=== PATIENT | male | born 1975 | race Hispanic/Latino ===

== ENCOUNTER 2016-07-27 11:24 | Emergency (ER) ==
[2016-07-27 11:48] LABS: MANUAL DIFF NEEDED? NO
[2016-07-27 12:05] LABS: EOS# 0.03 X1000 (0.0-0.7); EOS% 0.7 % (0.0-10.0); HEMATOCRIT 42.2 % (42.0-52.0); HEMOGLOBIN 14.6 g/dL (14.0-18.0); LYMPH# 1.88 X1000 (1.2-3.4); LYMPH% 44.8 % (20.5-51.1); MCH 34.8 PG (27-31); MCHC 34.6 g/dL (33-37); MCV 100.5 FL (81-99); MONO# 0.43 X1000 (0.11-0.59); MONO% 10.2 % (1.7-9.3); MPV 9.4 FL (7.4-10.4); NEUT% 44.3 % (42.2-75.2); PLT 202 X1000 (130-400)
[2016-07-27 12:11] LABS: AGAP 11; ALBUMIN 3.9 g/dL (3.5-5.0); ALKALINE PHOSPHATASE 120 U/L (32-122); BUN 14 mg/dL (8-22); CALCIUM 8.2 mg/dL (8.8-10.2); CHLORIDE 102 mmol/L (98-107); CK PROFILE 122 U/L (24-204); COSMO 274; GOT 23 U/L (10-34); GPT 34 U/L (10-44); MAGNESIUM 2.1 mg/dL (1.5-2.7); POTASSIUM 4.1 mmol/L (3.5-5.1); SODIUM 137 mmol/L (136-145); TCO2 24 mmol/L (25-35); TOTAL BILIRUBIN 0.19 mg/dL (0.20-1.00)
[2016-07-27 12:15] LABS: INR 0.94; PTT 25.3 Seconds (22.0-36.0)
[2016-07-27] MEDS ORDERED: NITROGLYCERIN TOP ONE (13:26)
[2016-07-27] MEDS ORDERED: ASPIRIN PO ONE (13:26)
[2016-07-27] MEDS ORDERED: ZOFRAN IV ONE (13:26)
[2016-07-27] MEDS ORDERED: MORPHINE IV ONE (13:26)
[2016-07-27] MEDS ORDERED: XANAX PO ONE (13:26)
--- NOTE | 2016-07-27 13:33 | PROVIDER DOCUMENTATION ---
HPI-Chest Pain - General Chief Complaint: Chest Pain Stated Complaint: CP Time Seen by Provider: 07/27/16 13:00 Source: patient Allergies/Adverse Reactions: Patient Allergies Allergy/AdvReac Type Severity Reaction Status Date / Time No Known Allergies Allergy Verified 07/27/16 12:05 Home Medications: Home Medication List Medication Instructions Recorded Confirmed Last Taken Type Clonazepam 1 mg PO BID 12/31/14 07/27/16 07/24/16 20:00 History Phenytoin [Dilantin] 300 mg PO BID 04/14/15 07/27/16 07/27/16 07:30 History Metoprolol Succinate E.r. [Toprol 100 mg PO DAILY 12/31/15 07/27/16 07/27/16 07: 30 History Xl] Aspirin [Aspirin EC] 81 mg PO DAILY #90 tablet. 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 Pt describes the chest pain as aching in nature, midsternal and L chest, radiation down L arm, intermittent, made worse by deep inspiration. He states his chest pain started at work last night while he was lifting heavy objects. Pt woke with the chest pain this morning. Pt has a h/o chronic pain from recurrent renal stones, htn, anxiety. He denies any h/o RI or family h/o RI <55 years of age. On arrival, pt is in minimal distress. Review of Systems - Adult - REVIEW OF SYSTEMS - ADULT Constitutional: reports: no symptoms reported. denies: chills, fatique Eyes: reports: no symptoms reported. denies: blurred vision, double vision Ears, Nose, Mouth & Throat: reports: no symptoms reported. denies: ear pain, nose pain, throat pain Cardiovascular: reports: chest pain. denies: orthopnea Respiratory: reports: pleurisy. denies: chronic cough, cough, shortness of breath Gastrointestinal: reports: no symptoms reported. denies: abdominal pain, nausea Genitourinary: reports: no symptoms reported. denies: dysuria, hematuria Musculoskeletal: reports: muscle aches. denies: joint pain, joint swelling Integumentary: reports: no symptoms reported. denies: hives, itching Neurological: reports: no symptoms reported. denies: numbness, paresthesia Psychiatric: reports: no symptoms reported. denies: anxiety, emotional problems Endocrine: reports: no symptoms reported. denies: cold intolerance, heat intolerance Hematologic/Lymphatic: reports: no symptoms reported. denies: blood clots, low blood count Allergic/Immunologic: reports: no symptoms reported. denies: allergic reactions , eczema All Other Systems: Reviewed and Negative Past History - Adult - PAST MEDICAL HISTORY-ADULT Review of Records: reports: Old Records Reviewed, Nursing Assessment Review, Medications Reviewed, Social history reviewed & non-contributory. Major Childhood Illnesses: reports: denies history Cardiovascular: reports: HTN Respiratory: reports: denies history Gastrointestinal: reports: denies history Obstetrical/Gynecological: reports: denies history Genitourinary: reports: kidney stones Musculoskeletal: reports: denies history Neurological: reports: Seizures/Epilepsy Psychiatric: reports: anxiety Endocrine/Immune: reports: denies history Other Conditions: reports: denies history - PRIOR SURGERIES/PROCEDURES Surgical/Procedure History: reports: other (lithotripsy) - PRIOR HOSPITALIZATIONS Prior Hospitalizations: reports: none - IMMUNIZATION STATUS Childhood Immunizations: See Nurse Assessment Flu Vaccine: See Nurse Assessment - FAMILY HISTORY Family History: reviewed, not pertinent - SOCIAL HISTORY Smoking: denies Substance Use: none/never Alcohol Use Frequency: never Physical Exam-General - PHYSICAL EXAM-ADULT Initial Vital Signs Reviewed: Yes - CONSTITUTIONAL General Appearance: appears well, alert, no apparent distress - EYES Eyes: PERRL/EOMI, pink conjunctivae - HEAD, EARS, NOSE, MOUTH & THROAT HENMT: normocephalic/atraumatic, moist mucous membranes, normal ENT inspection - RESPIRATORY Respiratory: lungs clear, normal breath sounds, pain on inspiration, other ( tenderness to palpation of lower sternum, 5th and 6th rib) - CARDIOVASCULAR Cardiovascular: normal peripheral pulses, regular rate, rhythm, no edema - GASTROINTESTINAL (ABDOMEN) Abdominal Exam: normal bowel sounds, non tender, soft - LYMPHATIC Lymphatic: no adenopathy - MUSCULOSKELETAL Back Exam: normal inspection, no CVA tenderness Extremity: normal range of motion, non-tender, normal gait - SKIN Integumentary: normal color, normal turgor, warm/dry - NEUROLOGIC Neurologic: grossly normal, no motor/sensory deficits - PSYCHIATRIC Psych/Mental Status: normal mood/affect, normal thought content, normal thought process, oriented x 3 Progress - PLAN OF CARE/RESULTS Progress/Plan/Lab Results: Orders Category Date Time Status CHEST-2 VIEWS [RAD] Stat Exams 07/27/16 11:42 Completed CBC WITH ELECTRONIC DIFF [HEME] Stat Lab 07/27/16 11:35 Completed CK PROFILE [SP CHEM] Stat Lab 07/27/16 11:35 Completed CK PROFILE [SP CHEM] Stat Lab 07/27/16 13:56 Completed COMPREHENSIVE METABOLIC PANEL [CHEM] Stat Lab 07/27/16 11:35 Completed D-DIMER [CHEM] Stat Lab 07/27/16 11:35 Completed MAGNESIUM [CHEM] Stat Lab 07/27/16 11:35 Completed PRO B-NATRIURETIC PEPTIDE Stat Lab 07/27/16 11:35 Completed PROTIME WITH INR [COAG] Stat Lab 07/27/16 11:35 Completed PTT [COAG] Stat Lab 07/27/16 11:35 Completed TROPONIN T Stat Lab 07/27/16 11:35 Completed TROPONIN T Stat Lab 07/27/16 13:56 Completed Alprazolam [Xanax] Med 07/27/16 13:26 Discontinued 0.5 mg PO NOW ONE Aspirin Med 07/27/16 13:26 Discontinued 325 mg PO NOW ONE CefTRIAXONE 1 GM/NS [Rocephin 1 gm/Ns] 50 ml Med 07/27/16 14:51 Discontinued IV NOW Dexamethasone [Decadron] Med 07/27/16 14:51 Discontinued 10 mg IV NOW ONE Morphine Med 07/27/16 13:26 Discontinued 2 mg IV NOW ONE Nitroglycerin Med 07/27/16 13:26 Discontinued 0.5 inch TOP NOW ONE Ondansetron [Zofran] Med 07/27/16 13:26 Discontinued 4 mg IV NOW ONE EKG [EKG] Stat Ther 07/27/16 11:42 Ordered EKG [EKG] Stat Ther 07/27/16 13:26 Ordered Laboratory Tests 07/27/16 07/27/16 07/27/16 11:35 11:35 11:35 WBC 4.20 L RBC 4.20 L Hgb 14.6 Hct 42.2 MCV 100.5 H MCH 34.8 H MCHC 34.6 RDW Std Deviation 13.2 Plt Count 202 MPV 9.4 Immature Gran % (Auto) 0.0 Neut % (Auto) 44.3 Lymph % (Auto) 44.8 [place] % (Auto) 10.2 H Eos % (Auto) 0.7 Baso % (Auto) 0.0 Immature Gran # (Auto) 0.00 Neut # (Auto) 1.86 Lymph # (Auto) 1.88 [place] # (Auto) 0.43 Eos # (Auto) 0.03 Baso # (Auto) 0.00 PT INR PTT (Actin FS) D-Dimer 0.43 Sodium 137 Potassium 4.1 Chloride 102 Carbon Dioxide 24 L Anion Gap 11 BUN 14 Creatinine 0.8 Estimated GFR/1.73 m2 > 60 BUN/Creatinine Ratio 18 Glucose 99 Calculated Osmolality 274 Calcium 8.2 L Magnesium 2.1 Total Bilirubin 0.19 L AST 23 ALT 34 Alkaline Phosphatase 120 Creatine Kinase 122 Troponin T Sdh-H-Yacyeunrkgo Pept Total Protein 7.0 Albumin 3.9 Globulin 3.1 Albumin/Globulin Ratio 1.3 07/27/16 07/27/16 07/27/16 11:35 11:35 11:35 WBC RBC Hgb Hct MCV MCH MCHC RDW Std Deviation Plt Count MPV Immature Gran % (Auto) Neut % (Auto) Lymph % (Auto) [place] % (Auto) Eos % (Auto) Baso % (Auto) Immature Gran # (Auto) Neut # (Auto) Lymph # (Auto) [place] # (Auto) Eos # (Auto) Baso # (Auto) PT 10.0 INR 0.94 PTT (Actin FS) 25.3 D-Dimer Sodium Potassium Chloride Carbon Dioxide Anion Gap BUN Creatinine Estimated GFR/1.73 m2 BUN/Creatinine Ratio Glucose Calculated Osmolality Calcium Magnesium Total Bilirubin AST ALT Alkaline Phosphatase Creatine Kinase Troponin T < 0.010 Mzq-J-Nuytgechajf Pept 129 H Total Protein Albumin Globulin Albumin/Globulin Ratio 07/27/16 07/27/16 13:56 13:56 WBC RBC Hgb Hct MCV MCH MCHC RDW Std Deviation Plt Count MPV Immature Gran % (Auto) Neut % (Auto) Lymph % (Auto) [place] % (Auto) Eos % (Auto) Baso % (Auto) Immature Gran # (Auto) Neut # (Auto) Lymph # (Auto) [place] # (Auto) Eos # (Auto) Baso # (Auto) PT INR PTT (Actin FS) D-Dimer Sodium Potassium Chloride Carbon Dioxide Anion Gap BUN Creatinine Estimated GFR/1.73 m2 BUN/Creatinine Ratio Glucose Calculated Osmolality Calcium Magnesium Total Bilirubin AST ALT Alkaline Phosphatase Creatine Kinase 109 Troponin T < 0.010 Vyf-N-Bjgwrtkdlam Pept Total Protein Albumin Globulin Albumin/Globulin Ratio Vital Signs - 24 hr 07/27/16 07/27/16 07/27/16 11:38 13:05 14:18 Temperature 98.4 F Pulse Rate 64 62 67 Respiratory 20 19 16 Rate Blood Pressure 171/91 153/92 153/92 O2 Sat by Pulse 100 100 Oximetry 07/27/16 16:02 Temperature Pulse Rate 63 Respiratory 14 Rate Blood Pressure 130/91 O2 Sat by Pulse 99 Oximetry - REASSESSMENT Reassessment #1 Time Reassessed: 14:53 (Discussed c Dr. Vega (ER MD) who reviewed labs and imaging studies. He agreed c plan of care and follow up with cardiology. Pt states he is feeling improved after medications. ) - XRAY 1 XRAY Study: Chest Impression: Abnormal (Mildly shallow inspiration with mild left basilar subsegmental atelectasis. no other evidence of acute dz. - prelim radiology report) - CONSULTS/PCP/HOSPITALIST Notification #1 *Consult/PCP/Hospitalist*: Dr. Cummings (Cardiology) Time Discussed: 15:10 Reason/Comments: agrees c plan of care. will see pt in office. Departure - Departure Time of Disposition Order: 15:22 DIAGNOSIS: URI (upper respiratory infection) Qualifiers: URI type: unspecified URI Qualified Code(s): J06.9 - Acute upper respiratory infection, unspecified Chest pain Qualifiers: Chest pain type: unspecified Qualified Code(s): R07.9 - Chest pain, unspecified Disposition: HOME 01 Certified Medical Emergency: Emergent Condition: Stable Additional Instructions: ED Follow Up Instructions: You have been treated by a care provider in the Emergency Department. These instructions are being provided to you so you can have an understanding of how to care for yourself upon discharge. Upon discharge from the Emergency Department, you are responsible for making arrangements for follow-up care by a physician of your choice. Take all prescribed medications as directed. Return to the Emergency Department immediately for any new or worsening symptoms. You may call the Physician Referral phone number at [phone] to obtain a list of Physicians who are taking new patients. Prescriptions: Aspirin [Aspirin EC] 81 mg PO DAILY #90 tablet. Methylprednisolone [Medrol Dosepak] 4 mg PO DIRECTED #1 package Ibuprofen [Motrin] 800 mg PO Q8H PRN PRN #20 tablet PRN Reason: inflammation Omeprazole [Prilosec] 20 mg PO DAILY@0700 #20 capsule Azithromycin [Zithromax Z-Max] 250 mg PO DIRECTED #1 pkg Referrals: Christie Padron MD [Primary Care Provider] - Charles Cummings MD [STAFF PHYSICIAN] - Call for Appoint. 1-2days (Follow up with Dr. Cummings (Cardiology) on Friday.) Forms: Return to School/Parent Work Instructions: Nonspecific Chest Pain, [id number], Upper Respiratory Infection , Adult, [id number] Attestation - Physician/ BETTY Attestation Patient care was provided by Advanced Practice Provider:: Yes Advanced Practice Provider:: Levi Patel Advanced Practice Provider documentation review:: The Mid-level provider documentation, treatment plan and medical decision making was reviewed by the physician who agrees with all treatment and medical decision making by the P.
--- NOTE | 2016-07-27 14:09 | Diag Imaging Result Document ---
PROCEDURE NAME: CHEST-2 VIEWS - 07/27/2016 CHEST, 2 VIEWS: COMPARISON: Compared with 1 view chest of 02/19/2015. FINDINGS: Heart size is normal. Inspiration is mildly shallow. There is mild subsegmental atelectasis at the left base. The remainder of the lungs appear clear. There is no pleural effusion or pneumothorax identified. IMPRESSION: Mildly shallow inspiration with mild left basilar subsegmental atelectasis. No other evidence of acute disease.
--- NOTE | 2016-07-27 14:49 | ED EKG INTERP ---
EKG Interpretation - EKG Time of EKG reading by physician:: 14:41 EKG Read and Signed by:: Hosea Vega EKG Interpretation (*Must complete 3 of following elements*): Normal Rate: 66 Rhythm: Normal Sinus Rhythm [place]: normal
[2016-07-27] MEDS ORDERED: DECADRON IV ONE (14:51)
[2016-07-27] MEDS ORDERED: ROCEPHIN 1 GM/NS 50 ML IV ONE (14:51)
[2016-07-27 16:03] VITALS: BP 130/91
--- NOTE | 2016-07-29 09:23 | EKG Report ---
Test Performed on : 07/27/2016 11:29:11 AM Test Reason : Chest Pain Blood Pressure : / mmHG Vent. Rate : 057 BPM Atrial Rate : 057 BPM P-R Int : 122 ms QRS Dur : 088 ms QT Int : 388 ms P-R-T Axes : 048 -11 000 degrees QTc Int : 377 ms Sinus bradycardia. with sinus arrhythmia. Otherwise normal ECG When compared with ECG of 28-NOV-2015 00:19, Vent. rate has decreased BY 38 BPM Non-specific change in ST segment in Lateral leads T wave inversion now evident in Inferior leads T wave inversion no longer evident in Lateral leads QT has shortened Unconfirmed Result
--- NOTE | 2016-07-29 09:37 | EKG Report ---
Test Performed on : 07/27/2016 2:41:39 PM Test Reason : REPEAT CARDIACS Blood Pressure : / mmHG Vent. Rate : 066 BPM Atrial Rate : 066 BPM P-R Int : 140 ms QRS Dur : 108 ms QT Int : 388 ms P-R-T Axes : 081 -21 -01 degrees QTc Int : 406 ms Normal sinus rhythm. Normal ECG No previous ECGs available Unconfirmed Result
== END 2016-07-27 16:05 | disposition home or self-care (01) ==
LOC: ED 11:24
DX: J06.9 Acute upper respiratory infection, unspecified (principal); R07.89 Other chest pain; M79.602 Pain in left arm; R09.1 Pleurisy; M79.1 Myalgia; R07.1 Chest pain on breathing; G89.29 Other chronic pain; I10 Essential (primary) hypertension; R56.9 Unspecified convulsions; F41.9 Anxiety disorder, unspecified; Z79.82 Long term (current) use of aspirin; Z79.899 Other long term (current) drug therapy; Z87.442 Personal history of urinary calculi
CPT/HCPCS: 36415; 71020; 80053; 82550; 83735; 83880; 84484; 85025; 85379; 85610; 85730; 93005; 96365; 96375; J0696; J2270; J2405